=== PATIENT | female | born 1975 | race Caucasian/White ===

== ENCOUNTER → 2020-05-04 15:54 | Outpatient (CLI) | payer BC, SELFPAY ==
[2020-05-06 10:34] LABS: Covid-19 Nasal PCR Sendout P&C Negative
== END ==
PROVIDERS: PCP Nurse Practitioner Family; Visit Provider Nurse Practitioner Family
DX: Z03.818 Encounter for observation for suspected exposure to other biological agents ruled out (principal)
CPT/HCPCS: U0004

== ENCOUNTER 2023-10-10 12:53 | Outpatient (CLI) | payer BC, SELFPAY ==
[2023-10-10 19:46] LABS: Hemoglobin A1C 5.2 % (4.0-6.0)
[2023-10-18 11:04] LABS: Lipoprotein A 10.6
== END 2023-10-10 23:59 | disposition home or self-care (01) ==
LOC: LAB.DROPOF 10-11 12:53
PROVIDERS: PCP Nurse Practitioner Family; Visit Provider Nurse Practitioner Family
DX: R73.9 Hyperglycemia, unspecified (principal); E78.00 Pure hypercholesterolemia, unspecified
CPT/HCPCS: 83036; 83695

== ENCOUNTER 2024-08-13 16:07 | Outpatient (CLI) | payer BC, SELFPAY ==
[2024-08-13 13:55] LABS: Albumin Level 4.2 g/dl (3.5-5.0); Chloride 104 mmol/L (98-107); Hemoglobin A1C 5.3 % (4.0-6.0); Sodium 138 mmol/L (136-145)
[2024-08-13 13:56] LABS: Potassium 4.7 mmoL/L (3.5-5.1)
[2024-08-13 13:58] LABS: Alanine Aminotransferase 15 U/L (12-78); Albumin/Globulin Ratio 1.6 (1.1-1.8); Anion Gap 12.7 mEq/L (5-15); Aspartate Amino Transferase 22 U/L (14-36); Blood Urea Nitrogen 13 mg/dl (7-17); Carbon Dioxide 26 mmol/L (22.0-30.0); Cholesterol 224 mg/dl (140-200); Estimated Glomerular Filt Rate 105 ml/min (>60); GFR (African American) 128 ML/MIN (>60); Globulin 2.7 g/dL (1.3-3.2); Total Protein,Serum 6.9 g/dl (6.3-8.2); Triglycerides 156 mg/dl (30-150); VLDL Cholesterol 31 mg/dL (0-40)
[2024-08-13 13:59] LABS: Alkaline Phosphatase 54 U/L (38-126); Bilirubin,Total 0.4 mg/dl (0.2-1.3); Calcium 9.2 mg/dl (8.4-10.2); Chol/HDL Ratio 4.1 (1-3.5); Glucose 88 mg/dl (74-100); HDL Cholesterol 54 mg/dl (40-60); Magnesium 1.9 mg/dl (1.6-2.3)
[2024-08-13 14:10] LABS: Direct LDL Cholesterol 122.25 mg/dL (100-129)
[2024-08-13 14:30] LABS: Thyroid Stimulating Hormone 1.37 uIU/mL (0.465-4.68)
[2024-08-13 14:48] LABS: Hepatitis C Ab Qual. W/ RFX NEGATIVE (Negative)
== END 2024-08-13 23:59 | disposition home or self-care (01) ==
LOC: LAB.DROPOF 16:07
PROVIDERS: PCP Nurse Practitioner Family; Visit Provider Nurse Practitioner Family
DX: E78.00 Pure hypercholesterolemia, unspecified (principal); R73.9 Hyperglycemia, unspecified; Z11.59 Encounter for screening for other viral diseases
CPT/HCPCS: 80053; 80061; 83036; 83735; 84443; 86803

== ENCOUNTER 2024-10-16 08:58 | Day surgery (SDC) | payer BC, SELFPAY ==
[2024-10-16 09:16] VITALS: BP 132/75; PULSE 83; RESP 16; TEMP 36.3; O2SAT 100; BMI 23.0
[2024-10-16] MEDS: LACTATED RINGERS 1000ML 1,000 ML 50 ML IV (09:31)
[2024-10-16 09:38] LABS: HCG Qualitative, Serum Negative (Negative)
--- NOTE | 2024-10-16 09:45 | P.PNANES_ITS ---
[facility] Disclaimer: The information contained in this section may have been updated after the patient was seen, as this information can be updated by other users. Medical History (Updated 10/16/24 @ 09:15 by Christiane Keen RN) No significant past medical history Surgical History (Updated 10/16/24 @ 09:15 by Christiane Keen RN) H/O breast surgery Family History (Updated 10/16/24 @ 09:15 by Chirstiane Keen RN) Other No significant family history Social History Smoking Status: Never smoker alcohol intake: never substance use type: denies use current occupational status: employed Travel in the last 8 weeks?: None [facility] [place] Anesthesia Checklist Patient Identification Patient Identification: Verbal (Name & ) Structural Data Admitted From: Home Planned Operative Procedure/s: colonoscopy Consent for Planned Operative Procedure(s) Verified: Yes NPO Status Verified Time NPO: 00:00 Airway Assessment Mallampati Score:: Class II C-Spine Mobility Assessed: Yes TMJ Mobility Assessed: Yes Dentition: Good Dentition Neurological Assessment Level of Consciousness: Awake, Alert and Appropriate Anesthesia Plan Anesthesia Risk discussed: Yes Anesthesia Plan: Verified ASA Class: I Anesthesia Type: MAC
--- NOTE | 2024-10-16 09:52 | EXP.HP ---
History of Present Illness *Admission Date: 10/16/24 *Reason for visit:: Screening for colon cancer *History of present illness: Mrs. Diallo is a 49-year-old female who is here for initial screening colonoscopy. The examination is deemed medically necessary for screening colonoscopy. The patient has been seen, interviewed and examined prior to the procedure by both myself and the anesthesia provider. [facility] Disclaimer: The information contained in this section may have been updated after the patient was seen, as this information can be updated by other users. Medical History (Updated 10/16/24 @ 09:15 by Christiane Keen RN) No significant past medical history Surgical History (Updated 10/16/24 @ 09:15 by Christiane Keen RN) H/O breast surgery Family History (Updated 10/16/24 @ 09:15 by Christiane Keen RN) Other No significant family history Social History (Updated 10/16/24 @ 09:46 by Jose Barth CRNA) Smoking Status: Never smoker alcohol intake: never substance use type: denies use current occupational status: employed Travel in the last 8 weeks?: None Have you lived/traveled outside [place] in past 30 days?: No Contact w/someone who lives/traveled outside [place] past 30 days?: No Exposure to someone with infectious disease in past 14 days?: No Do you have a fever (greater than 100.4 F or 38 C)?: No Have you tested positive for COVID-19?: No Exposed to someone with COVID-19 in past 14 days?: No Do you have a sore throat?: No Do you have a cough?: No Do you have any weakness?: No Do you have any diarrhea?: No Are you experiencing any unusual bleeding?: No Do you have any muscle aches/pain?: No Do you have any abdominal pain?: No Are you experiencing loss of taste or smell?: No Other Medical History Have you received the Pneumonia Vaccine: No Review of Systems Review of Systems Review of systems (narrative): Negative *Cardiovascular Comments: Negative *Gastrointestinal Comments: Negative *Genitourinary Comments: Negative *Musculoskeletal Comments: Negative *Neurologic Comments: Negative Meds Home Medications and Allergies Home Medications ?Medication ?Instructions ?Recorded ?Confirmed ?Type multivitamin 1 tab PO DAILY 10/10/23 10/16/24 History New Prescriptions to Start Prescriptions: Allergies Allergy/AdvReac Type Severity Reaction Status Date / Time No Known Allergies Allergy Verified 10/16/24 09:28 Exam Data for Last 24 hours Vital signs and Labs for Last 24 Hours: Temp Pulse Resp BP Pulse Ox O2 Del Method 97.3 F L 83 16 132/75 100 Room Air 10/16/24 09:16 10/16/24 09:16 10/16/24 09:16 10/16/24 09:16 10/16/24 09:16 10/16/24 09:16 Laboratory Results - last 24 hr 10/16/24 09:15: Serum HCG, Qual Negative I & O for Last 24 hours: Intake & Output 10/13/24 10/14/24 10/15/24 10/16/24 23:59 23:59 23:59 23:59 Weight 130 lb *Routine HEENT Exam Head: Present normocephalic Eye: Present EOMI and PERRL ENT: Present mucous membranes moist *Routine Neck Exam Neck: Present supple *Routine Respiratory Exam Respiratory: Present CTA bilaterally *Routine Cardiovascular Exam Cardiovascular: Present RRR *Routine Abdominal Exam Abdominal: Present soft and normoactive bowel sounds; Absent tenderness *Routine Rectal Exam Rectal:: deferred *Routine Genitalia Exam Genitalia:: deferred *Routine Extremities Exam Extremities: Absent cyanosis, clubbing or edema *Routine Skin Exam Skin: Present warm; Absent rash *Routine Neurological Exam Neurological: Present alert and oriented X3 Assessment and Plan *Assessment and plan (1) Screening for colon cancer: Status: Acute Category: Medical Code(s): Z12.11 - Encounter for screening for malignant neoplasm of colon Plan A/P: 1. Screening for colon cancer is the preprocedural diagnosis. The patient will be anesthetized/sedated using MAC sedation. The patient has been seen and examined. Cardiac and lung assessment prior to the examination is stable. Proceed with planned screening colonoscopy.
--- NOTE | 2024-10-16 10:04 | HMH.PROCNOTE ---
[facility] Procedure Note Date: 10/16/24 Time: 10:24 Procedure Note:: Colonoscopy Procedure Report: Colonoscopy with cold snare polypectomy Endoscopist: Lito Whitley II, MD Referring physician: YAMILKA Santo Date of Procedure: October 16, 2024 Equipment: Olympus 190 variable stiffness pediatric colonoscope Sedation: MAC sedation Indication: Mrs. Diallo is a 49-year-old female who is here for initial screening colonoscopy. She reports no abdominal pain, weight loss, change in her bowel habits or rectal bleeding. She reports no family history of colon cancer. Procedure: Prior to the procedure, a history and physical exam was performed, and patient's medications and allergies were reviewed. The risks, benefits and alternatives of the sedation and procedure were discussed with the patient. All questions were answered and informed consent was obtained. The patient was brought to the procedure room. Patient identification and proposed procedure were verified by the physician and the nurse. The patient was placed in a left lateral decubitus position and the scope was passed under direct vision. Throughout the procedure, the patient's blood pressure, pulse, and oxygen saturations were monitored continuously. The colonoscopy was accomplished without difficulty. The patient tolerated the procedure well. Findings: On digital rectal examination there was normal rectal tone. There were no external hemorrhoids. The colonoscope was introduced through the anal canal to the rectum and advanced to the cecum. The ileocecal valve and appendiceal orifice were identified. The scope was advanced a short distance into the ileum which appeared grossly normal. The scope was then withdrawn into the colon. There were 2 polyps (ascending x 1 (3 mm) and transverse x 1 (5 mm)). Both of these were removed via cold snare polypectomy. The remaining cecum, ascending, transverse, descending, sigmoid and rectum were grossly normal. There were no other mucosal abnormalities identified. Upon retroflexion within the rectum there were grade 1-2 internal hemorrhoids. The preparation was excellent throughout with [place] Preparation Score of 9. The cecal time was 12 minutes. Impression: 1. Diminutive colonic polyps x 2 Plan: I will follow-up the polyp histology and recommend repeat surveillance colonoscopy again in 7 years if the polyps are adenomatous.
[2024-10-16 10:27] VITALS: BP 97/67; PULSE 79; RESP 16; TEMP 36.4; O2SAT 98
[2024-10-16 10:37] VITALS: BP 116/70; PULSE 60; RESP 16; O2SAT 97
[2024-10-16 10:47] VITALS: BP 108/68; PULSE 60; RESP 18; O2SAT 98
[2024-10-16 10:57] VITALS: BP 124/72; PULSE 62; RESP 18; O2SAT 97
[2024-10-16 11:27] VITALS: BP 118/62; PULSE 68; RESP 18; TEMP 36.4; O2SAT 98
== END 2024-10-16 11:27 | disposition home or self-care (01) ==
PROVIDERS: PCP Nurse Practitioner Family; Visit Provider Internal Medicine Gastroenterology
PROC: 0DJD8ZZ Inspection of Lower Intestinal Tract, Via Natural or Artificial Opening Endoscopic (ICD-10-PCS; CPT 45378; principal; 2024-10-16 10:30)
DX: Z12.11 Encounter for screening for malignant neoplasm of colon (principal); D12.3 Benign neoplasm of transverse colon; K64.1 Second degree hemorrhoids; K63.5 Polyp of colon
CPT/HCPCS: 45385; 84703; J2003; J2704; J7120